=== PATIENT | female | born 1960 | race Caucasian/White ===

== ENCOUNTER 2022-02-05 18:47 | Inpatient (IN) | payer MEDICARE, MEDICAID ==
[~2022-02-05] VITALS: Ht 160 cm; Wt 69.4 kg
[~2022-02-05 18:47] MED LIST: NO HOME MEDS
[2022-02-05 20:44] LABS: BASOPHILS % (AUTO) 0.4 % (0-1); EOSINOPHILS # (AUTO) 0.1 X10'3 (0-0.9); EOSINOPHILS % (AUTO) 2.6 % (0-6); HEMOGLOBIN 7.1 g/dl (12.0-16.0); LYMPHOCYTES # (AUTO) 1.2 X10'3 (1.1-4.8); LYMPHOCYTES % (AUTO) 25.6 % (21-51); MEAN CORPUSCULAR HEMOGLOBIN 33.3 PG (27.0-31.0); MEAN CORPUSCULAR VOLUME 101.1 FL (78-98); MEAN PLATELET VOLUME 7.5 FL (7.4-10.4); MONOCYTES # (AUTO) 0.5 X10'3 (0-0.9); MONOCYTES % (AUTO) 11.3 % (2-12); NEUTROPHILS # (AUTO) 2.8 X10'3 (1.8-7.7); NEUTROPHILS % (AUTO) 60.1 % (42-75); PLATELET COUNT 203 X10'3 (140-440); RED BLOOD COUNT 2.14 X10'6 (4.20-5.60); RED CELL DISTRIBUTION WIDTH 14.8 % (11.5-14.5); WHITE BLOOD COUNT 4.7 X10'3 (4.5-11.0)
[2022-02-05 20:47] LABS: HEMATOCRIT 21.7 % (35.0-45.0)
--- NOTE | 2022-02-05 21:00 | NUR ---
Pt presents to room with alicia (absorbent pad) wrapped around waist and covered in feces. Pt states she was discharged from [facility] [place] like that. Cleaned pt and provided/applied colostomy bag with Otilia PAZ at bedside. Skin area surround stoma is erythematous and tender.
[2022-02-05 21:11] LABS: ALANINE AMINOTRANSFERASE 14 U/L (12-78); ALBUMIN/GLOBULIN RATIO 0.4 (1.1-1.5); ALKALINE PHOSPHATASE 92 IU/L (46-116); ANION GAP 11 (8-16); ASPARTATE AMINO TRANSFERASE 25 U/L (10-37); BILIRUBIN,TOTAL 0.5 MG/DL (0.1-1.0); BLOOD UREA NITROGEN 22 MG/DL (7-18); BUN/CREATININE RATIO 18.6 (6.6-38.0); CALCIUM 7.7 MG/DL (8.5-10.1); CHLORIDE 110 MMOL/L (99-107); CREATININE 1.18 MG/DL (0.40-0.90); GLUCOSE 71 MG/DL (70-104); LIPASE 233 U/L (73-393); SODIUM 142 MMOL/L (135-145); TOTAL CARBON DIOXIDE 21.1 MMOL/L (24-32); TOTAL PROTEIN 7.7 G/DL (6.4-8.2); eGFR 47 ML/MIN
[2022-02-05 21:18] LABS: POTASSIUM 2.9 MMOL/L (3.5-5.1)
[2022-02-05] MEDS ORDERED: normal saline 1000ml 1,000 ML IV ONE (21:45)
[2022-02-05] MEDS ORDERED: ringers solution, lacted 1,000 ML IV ONE (22:10)
[2022-02-05] MEDS ORDERED: magnesium 4gm in 100ml NS 100 ML IV ONE (22:10)
[2022-02-05] MEDS ORDERED: potassium Cl 20 mEq SR tablet PO ONE (22:10)
[2022-02-05 22:36] LABS: CLARITY,URINE CLEAR (Clear); COLOR,URINE YELLOW (Yellow); GLUCOSE, URINE NEGATIVE (Neg); KETONES,URINE NEGATIVE (Neg); LEUKOCYTE ESTERASE ,URINE NEGATIVE (Neg); NITRITES, URINE NEGATIVE (Neg); OCCULT BLOOD,URINE NEGATIVE (Neg); PROTEIN,URINE NEGATIVE (Neg); UROBILINOGEN,URINE 0.2 E.U/dL (0.2-1.0)
[2022-02-05 22:38] LABS: URINE HCG NEGATIVE (NEG)
[2022-02-05 22:45] LABS: UA COLLECTION TYPE VOIDED
[2022-02-05] MEDS: potassium CL 10mEq/100ml bag 100 ML IV SCH ×2 (22:52→23:10)
[2022-02-05] MEDS ORDERED: ondansetron/PF 4mg/2ml inj IV ONE (23:15)
[2022-02-05] MEDS ORDERED: morphine 4 MG/ML inj SYRINge IV ONE (23:15)
[2022-02-05] MEDS ORDERED: piperacillin/tazo 3.375gm/50ml 50 ML IV ONE (23:30)
[2022-02-06] MEDS ORDERED: acetaminophen 325mg tablet PO PRN ×2 (00:55)
[2022-02-06] MEDS ORDERED: ondansetron/PF 4mg/2ml inj IV PRN (00:55)
[2022-02-06] MEDS ORDERED: diphenhydrAMINE 25mg capsule PO PRN (00:55)
[2022-02-06] MEDS ORDERED: magnesium hydroxide 30ml (MOM) UD suspension PO PRN (00:55)
[2022-02-06] MEDS ORDERED: bisacodyl 10mg suppository rectal RC PRN (00:55)
[2022-02-06] MEDS ORDERED: mag hydrox/Alum hydrox/simeth 30ml oral suspension PO PRN (00:55)
[2022-02-06] MEDS ORDERED: potassium Cl 40MEQ/1/2NS 520ml 520 ML IV PRN (00:55)
[2022-02-06] MEDS ORDERED: ondansetron 4mg rapidly disintigrating tab PO PRN (00:55)
[2022-02-06] MEDS ORDERED: acetaminophen 650mg rectal suppository RC PRN (00:55)
[2022-02-06] MEDS ORDERED: diphenhydrAMINE 50 mg/ml inj IV PRN (00:55)
[2022-02-06] MEDS: normal saline 1000ml 1,000 ML IV SCH (01:22)
[2022-02-06] MEDS ORDERED: LACT10SO3 PO (02:17)
[2022-02-06] MEDS ORDERED: HYDR-3964 PO (02:17)
[2022-02-06] MEDS ORDERED: RIFA550T PO (02:17)
[2022-02-06] MEDS ORDERED: FLUD0.1T PO (02:17)
[2022-02-06] MEDS ORDERED: ALBU18HF2 PO (02:17)
[2022-02-06] MEDS ORDERED: DULO30CA52 PO (02:17)
[2022-02-06 02:20] LABS: APTT 27 SECONDS (22-32); D-DIMER 2.73 MG/L FEU (0-0.50)
[2022-02-06 02:29] LABS: CREATINE KINASE 50 U/L (26-192); MAGNESIUM 1.4 MG/DL (1.5-2.4); PHOSPHORUS 3.9 MG/DL (2.3-4.5)
[2022-02-06 02:35] LABS: POTASSIUM 2.7 MMOL/L (3.5-5.1)
[2022-02-06] MEDS: potassium Cl 20 mEq SR tablet PO PRN ×3 (02:44→15:18)
[2022-02-06] MEDS: potassium CL 10mEq/100ml bag 100 ML IV SCH (03:13)
[2022-02-06] MEDS: morphine 2 MG/ML inj. syringe IV PRN ×2 (03:14→17:43)
--- NOTE | 2022-02-06 05:09 | NUR ---
At bedside for first 15 minutes of blood transfusion
[2022-02-06 07:00] VITALS: BP 100/78
[2022-02-06] MEDS: heparin, porcine 5000 units/ml vial SQ SCH ×2 (07:24→20:38)
[2022-02-06] MEDS: docusate sod 100mg capsule PO SCH ×2 (07:25→20:37)
--- NOTE | 2022-02-06 07:52 | NUR ---
Patient in room [facility] 351. I have received report from JACKSON CONTRERAS FROM ER and had the opportunity to ask questions and assume patient care.
[2022-02-06] MEDS ORDERED: pantoprazole 40MG/NS 100ML BAG 100 ML IV SCH (08:00)
[2022-02-06 08:24] LABS: ALBUMIN 1.8 G/DL (3.4-5.0); ANION GAP 11 (8-16); BLOOD UREA NITROGEN 15 MG/DL (7-18); BUN/CREATININE RATIO 14.9 (6.6-38.0); CALCIUM 7.6 MG/DL (8.5-10.1); CHLORIDE 110 MMOL/L (99-107); CREATININE 1.01 MG/DL (0.40-0.90); GLUCOSE 79 MG/DL (70-104); SODIUM 140 MMOL/L (135-145); TOTAL CARBON DIOXIDE 19.2 MMOL/L (24-32); eGFR 56 ML/MIN
[2022-02-06 08:29] LABS: POTASSIUM 2.6 MMOL/L (3.5-5.1)
--- NOTE | 2022-02-06 08:42 | NUR ---
PAGER ID: [phone] MESSAGE: 351- Rickey JOHN- NANCY K 2.6 HAS PROTOCOL REPLACEMENT - [id number]
[2022-02-06] MEDS: HYDROcodone/acetaminophen 5mg/325mg tablet PO PRN ×2 (09:22→15:46)
[2022-02-06 10:27] LABS: BASOPHILS % (AUTO) 0.5 % (0-1); EOSINOPHILS # (AUTO) 0.1 X10'3 (0-0.9); EOSINOPHILS % (AUTO) 2.1 % (0-6); HEMATOCRIT 24.1 % (35.0-45.0); LYMPHOCYTES # (AUTO) 0.7 X10'3 (1.1-4.8); LYMPHOCYTES % (AUTO) 17.5 % (21-51); MEAN CORPUSCULAR HEMOGLOBIN 33.3 PG (27.0-31.0); MEAN CORPUSCULAR HGB CONC 33.2 g/dL (33.0-36.5); MEAN CORPUSCULAR VOLUME 100.2 FL (78-98); MEAN PLATELET VOLUME 8.5 FL (7.4-10.4); MONOCYTES # (AUTO) 0.6 X10'3 (0-0.9); MONOCYTES % (AUTO) 13.3 % (2-12); NEUTROPHILS # (AUTO) 2.8 X10'3 (1.8-7.7); NEUTROPHILS % (AUTO) 66.6 % (42-75); PLATELET COUNT 161 X10'3 (140-440); RED CELL DISTRIBUTION WIDTH 14.6 % (11.5-14.5); WHITE BLOOD COUNT 4.2 X10'3 (4.5-11.0)
[2022-02-06 10:37] VITALS: BP 129/80
[2022-02-06] MEDS: K and/or MAG REPLACEMENT MC SCH ×2 (11:38→20:00)
[2022-02-06] MEDS ORDERED: albuterol 2.5 MG/3 ML nebule NEB PRN (14:40)
[2022-02-06] MEDS ORDERED: pneumococcal 23-VAL P-sac vacc 25 mcg/0.5ml vial IMVAC ONE (15:45)
--- NOTE | 2022-02-06 17:54 | NUR ---
This resource RN was asked by primary RN to administer pain med IV morphine to patient for c/o 8/10 pain. IV site flushed with normal saline flush for patency, morphine administered and flushed again with normal saline flush. Patient then c/o of burning to IV site. Redness to IV site noted. Patient continue to c/o of pain to IV site. Patient's primary RN and credit charge authorizer notified. Primary RN went in to assess IV site and ok with IV Dc. Cool compress to IV site applied after IV dc.
--- NOTE | 2022-02-06 18:42 | NUR ---
Problems reprioritized. Patient report given, questions answered & plan of care reviewed with JACKSON JONES.
[2022-02-06 19:00] VITALS: BP 133/59
[2022-02-06] MEDS ORDERED: lactulose 20gm/30ml cup PO SCH (20:00)
[2022-02-06] MEDS: fludrocortisone acetate 0.1mg tablet PO SCH (20:37)
[2022-02-06] MEDS: rifaximin 550mg tablet PO SCH (20:40)
[2022-02-06] MEDS ORDERED: morphine 2 MG/ML inj. syringe IV ONE (20:55)
[2022-02-06 22:00] VITALS: BP 142/77
[2022-02-07] MEDS: temazepam 15mg capsule PO PRN ×2 (00:51→00:54)
[2022-02-07] MEDS: normal saline 1000ml 1,000 ML IV SCH (00:52)
[2022-02-07 06:00] VITALS: BP 127/57
[2022-02-07 06:07] LABS: BASOPHILS % (AUTO) 0.4 % (0-1); EOSINOPHILS # (AUTO) 0.1 X10'3 (0-0.9); EOSINOPHILS % (AUTO) 2.6 % (0-6); HEMATOCRIT 24.7 % (35.0-45.0); HEMOGLOBIN 8.1 g/dl (12.0-16.0); LYMPHOCYTES # (AUTO) 0.7 X10'3 (1.1-4.8); LYMPHOCYTES % (AUTO) 19.8 % (21-51); MEAN CORPUSCULAR HEMOGLOBIN 32.8 PG (27.0-31.0); MEAN CORPUSCULAR HGB CONC 32.6 g/dL (33.0-36.5); MEAN CORPUSCULAR VOLUME 100.5 FL (78-98); MEAN PLATELET VOLUME 7.4 FL (7.4-10.4); MONOCYTES # (AUTO) 0.4 X10'3 (0-0.9); MONOCYTES % (AUTO) 10.9 % (2-12); NEUTROPHILS # (AUTO) 2.2 X10'3 (1.8-7.7); NEUTROPHILS % (AUTO) 66.3 % (42-75); PLATELET COUNT 178 X10'3 (140-440); RED BLOOD COUNT 2.46 X10'6 (4.20-5.60); RED CELL DISTRIBUTION WIDTH 15.1 % (11.5-14.5); WHITE BLOOD COUNT 3.4 X10'3 (4.5-11.0)
--- NOTE | 2022-02-07 06:07 | NUR ---
Problems reprioritized. Patient report given, questions answered & plan of care reviewed with Ambar. Addendum: 02/07/22 at 0607 by Julio César Tejada RN Amended: Links added.
--- NOTE | 2022-02-07 06:13 | NUR ---
Patient in room [facility] 351. I have received report from JACKSON JONES and had the opportunity to ask questions and assume patient care.
[2022-02-07 06:23] LABS: ALANINE AMINOTRANSFERASE 7 U/L (12-78); ALBUMIN 1.7 G/DL (3.4-5.0); ALBUMIN/GLOBULIN RATIO 0.3 (1.1-1.5); ALKALINE PHOSPHATASE 68 IU/L (46-116); ANION GAP 10 (8-16); ASPARTATE AMINO TRANSFERASE 28 U/L (10-37); BILIRUBIN,TOTAL 0.7 MG/DL (0.1-1.0); BLOOD UREA NITROGEN 12 MG/DL (7-18); CALCIUM 7.8 MG/DL (8.5-10.1); CHLORIDE 114 MMOL/L (99-107); GLUCOSE 97 MG/DL (70-104); POTASSIUM 3.4 MMOL/L (3.5-5.1); SODIUM 142 MMOL/L (135-145); TOTAL PROTEIN 6.7 G/DL (6.4-8.2); eGFR 57 ML/MIN
[2022-02-07] MEDS: HYDROcodone/acetaminophen 5mg/325mg tablet PO PRN (06:53)
[2022-02-07] MEDS ORDERED: pantoprazole 40mg Tablet.DR PO SCH (07:30)
[2022-02-07] MEDS ORDERED: duloxetine 30mg CAPSULE.DR PO SCH (08:00)
[2022-02-07] MEDS: rifaximin 550mg tablet PO SCH (08:25)
[2022-02-07] MEDS: K and/or MAG REPLACEMENT MC SCH (08:25)
[2022-02-07] MEDS: potassium Cl 20 mEq SR tablet PO PRN ×2 (08:25→12:46)
[2022-02-07] MEDS: fludrocortisone acetate 0.1mg tablet PO SCH (08:25)
[2022-02-07] MEDS ORDERED: potassium Cl 20 mEq SR tablet PO PRN ×2 (09:00)
[2022-02-07] MEDS ORDERED: magnesium 4gm in 100ml NS 100 ML IV PRN (09:00)
[2022-02-07] MEDS ORDERED: magnesium Cl slow-release 64mg tablet PO PRN (09:00)
[2022-02-07] MEDS ORDERED: potassium Cl 40MEQ/1/2NS 520ml 520 ML IV PRN (09:00)
[2022-02-07 09:38] LABS: MAGNESIUM 1.4 MG/DL (1.5-2.4)
[2022-02-07] MEDS ORDERED: pneumococcal 23-VAL P-sac vacc 25 mcg/0.5ml vial IMVAC ONE (10:00)
[2022-02-07] MEDS: morphine 2 MG/ML inj. syringe IV PRN (10:42)
[2022-02-07] MEDS: heparin, porcine 5000 units/ml vial SQ SCH (12:20)
[2022-02-07] MEDS: docusate sod 100mg capsule PO SCH (12:20)
[2022-02-07] MEDS ORDERED: MAGN400T56 PO ×2 (13:58)
[2022-02-07] MEDS ORDERED: POTA-207 PO ×2 (13:58)
[2022-02-07] MEDS ORDERED: HYDR-3965 PO ×2 (13:58)
[2022-02-07] MEDS ORDERED: FERR325T28 PO ×2 (13:58)
[2022-02-07] MEDS ORDERED: MULT-1085 PO ×2 (13:58)
[2022-02-07] MEDS ORDERED: VITC500T PO ×2 (13:58)
--- NOTE | 2022-02-07 15:40 | NUR ---
PATIENT STABLE AND APPROPRIATE FOR DISCHARGE, IV REMOVED TELE REMOVED, EDUCATION GIVEN, ALL BELONGINGS SENT WITH PATIENT, PATIENT TAKEN TO LOBBY BY WHEELCHAIR TO AN AWAITING CAR WHERE WILL TAKE PATIENT HOME
[2022-02-07] MEDS ORDERED: K and/or MAG REPLACEMENT MC SCH (20:00)
[2022-02-14] MEDS ORDERED: LACT10SO3 PO (15:27)
[2022-02-14] MEDS ORDERED: MULT-1085 PO (15:29)
[2022-02-14] MEDS ORDERED: FERR325T29 PO (15:29)
[2022-02-14] MEDS ORDERED: POTA-207 PO (15:29)
[2022-02-16] MEDS ORDERED: DOXY-243 PO (16:15)
== END 2022-02-07 15:41 | disposition home or self-care (01) | DRG 641 ==
LOC: ER 18:48 → ED HOLD 02-06 00:58 → SUR 3N 02-06 08:08
PROVIDERS: ADMIT Family Medicine; ATTEND Family Medicine
PROC: 30233N1 Transfusion of Nonautologous Red Blood Cells into Peripheral Vein, Percutaneous Approach (ICD-10-PCS; principal; 2022-02-06)
DX: E87.6 Hypokalemia (principal); E87.20 Acidosis, unspecified; E03.9 Hypothyroidism, unspecified; E83.42 Hypomagnesemia; E83.51 Hypocalcemia; S80.212A Abrasion, left knee, initial encounter; X58.XXXA Exposure to other specified factors, initial encounter; B19.20 Unspecified viral hepatitis C without hepatic coma; E88.09 Other disorders of plasma-protein metabolism, not elsewhere classified; I27.20 Pulmonary hypertension, unspecified; K70.9 Alcoholic liver disease, unspecified; K76.0 Fatty (change of) liver, not elsewhere classified; N18.9 Chronic kidney disease, unspecified; Z87.891 Personal history of nicotine dependence; Z90.49 Acquired absence of other specified parts of digestive tract; Z93.3 Colostomy status; Y93.89 Activity, other specified; Y92.89 Other specified places as the place of occurrence of the external cause; Y99.8 Other external cause status; Z79.899 Other long term (current) drug therapy; D64.89 Other specified anemias
CPT/HCPCS: 36415; 36430; 71045; 74176; 80048; 80053; 81003; 81025; 82550; 83605; 83690; 83735; 83880; 84100; 84132; 84145; 84443; 84484; 85025; 85379; 85610; 85730; 86885; 86900; 86901; 86920; 87040; 87081; 90732; 99285; A4371; A4421; A6212; A6213; C9113; G0378; J1644; J2270; J2543; J3475; J3480; J7030; J7050; J7120; P9016

== ENCOUNTER 2022-04-01 06:28 | Inpatient (IN) | payer MEDICARE, MEDICAID ==
[~2022-04-01] VITALS: Ht 160 cm; Wt 68.2 kg
[~2022-04-01 06:28] MED LIST changes: +AMOX-580 PO; +DULO60CA60 PO; +FERR325T29 PO; +FLUD0.1T PO; +HYDR-3964 PO; +LACT10SO3 PO; +MULT-1085 PO; -NO HOME MEDS; +POTA-207 PO; +RIFA550T PO
[2022-04-01] MEDS: morphine 4 MG/ML inj SYRINge IV PRN ×2 (07:53→11:55)
[2022-04-01 08:27] LABS: BASOPHILS % (AUTO) 0.3 % (0-1); EOSINOPHILS # (AUTO) 0.1 X10'3 (0-0.9); EOSINOPHILS % (AUTO) 1.5 % (0-6); HEMOGLOBIN 7.4 g/dl (12.0-16.0); MEAN CORPUSCULAR HEMOGLOBIN 32.5 PG (27.0-31.0); MEAN CORPUSCULAR HGB CONC 34.1 g/dL (33.0-36.5); MEAN CORPUSCULAR VOLUME 95.3 FL (78-98); MEAN PLATELET VOLUME 8.4 FL (7.4-10.4); MONOCYTES # (AUTO) 0.5 X10'3 (0-0.9); MONOCYTES % (AUTO) 8.9 % (2-12); NEUTROPHILS % (AUTO) 71.3 % (42-75); PLATELET COUNT 202 X10'3 (140-440); RED BLOOD COUNT 2.27 X10'6 (4.20-5.60); RED CELL DISTRIBUTION WIDTH 16.3 % (11.5-14.5); WHITE BLOOD COUNT 5.6 X10'3 (4.5-11.0)
[2022-04-01 08:33] LABS: ALANINE AMINOTRANSFERASE 11 U/L (12-78); ALBUMIN 1.6 G/DL (3.4-5.0); ALBUMIN/GLOBULIN RATIO 0.3 (1.1-1.5); ALKALINE PHOSPHATASE 136 IU/L (46-116); ANION GAP 6 (8-16); ASPARTATE AMINO TRANSFERASE 32 U/L (10-37); BILIRUBIN,TOTAL 0.4 MG/DL (0.1-1.0); BLOOD UREA NITROGEN 11 MG/DL (7-18); BUN/CREATININE RATIO 14.3 (6.6-38.0); CALCIUM 7.5 MG/DL (8.5-10.1); CHLORIDE 110 MMOL/L (99-107); CREATININE 0.77 MG/DL (0.40-0.90); GLUCOSE 95 MG/DL (70-104); LIPASE 106 U/L (73-393); SODIUM 142 MMOL/L (135-145); TOTAL CARBON DIOXIDE 25.9 MMOL/L (24-32); TOTAL PROTEIN 7.2 G/DL (6.4-8.2); eGFR 76 ML/MIN
[2022-04-01 08:36] LABS: HEMATOCRIT 21.7 % (35.0-45.0)
[2022-04-01 08:45] LABS: POTASSIUM 2.5 MMOL/L (3.5-5.1)
[2022-04-01 09:10] LABS: CLARITY,URINE SLIGHTLY CLOUDY (Clear); COLOR,URINE YELLOW (Yellow); GLUCOSE, URINE NEGATIVE (Neg); KETONES,URINE NEGATIVE (Neg); LEUKOCYTE ESTERASE ,URINE NEGATIVE (Neg); NITRITES, URINE NEGATIVE (Neg); OCCULT BLOOD,URINE NEGATIVE (Neg); PH,URINE 7.5 (4.8-8.0); PROTEIN,URINE NEGATIVE (Neg); UROBILINOGEN,URINE 0.2 E.U/dL (0.2-1.0)
[2022-04-01] MEDS ORDERED: ceFAZolin/D5W- 1GM premix 50 ML IV STA (09:11)
[2022-04-01 09:12] LABS: UA COLLECTION TYPE CLN CATCH MIDSTREAM
--- NOTE | 2022-04-01 09:14 | NUR ---
Pt presented with colostomy stoma (red, intact) with ulcer adjacent to it. Additionally, dried stool noted around stoma. RN pre-medicated pt with IV morphine. Then RN cleansed and dried abdomen, applying nonadherent dressing to stoma and ulcer per Dr. Ricks. Pt tolerated dressing change with some discomfort. Pt resting comfortably now without complaints.
--- NOTE | 2022-04-01 09:16 | NUR ---
RN received lab results: Hct 21.7, Hgb 7.4, and K+ 2.4. RN notified Dr. Ricks at 0906. Will await orders.
[2022-04-01 09:17] LABS: BACTERIA,URINE NONE SEEN /HPF (Neg); RBC,URINE 0-2 /HPF (0-2); SQUAMOUS EPITHELIAL CELL,UR FEW /LPF (FEW); WBC,URINE 0-4 /HPF (0-4)
[2022-04-01] MEDS ORDERED: potassium Cl 20 mEq SR tablet PO PRN ×4 (09:55→10:55)
[2022-04-01] MEDS ORDERED: potassium Cl 40MEQ/1/2NS 520ml 520 ML IV PRN ×3 (09:55→10:55)
[2022-04-01] MEDS ORDERED: K, MAG and/or Phos replacement - Verify level? MC SCH (10:00)
--- NOTE | 2022-04-01 10:00 | NUR ---
Per , OK to order K+ replacement protocol and replace. RN ordered via [facility].
[2022-04-01] MEDS ORDERED: potassium Cl 40MEQ/1/2NS 520ml 520 ML IV ONE ×2 (10:05→23:25)
[2022-04-01] MEDS ORDERED: magnesium Cl slow-release 64mg tablet PO PRN (10:55)
[2022-04-01] MEDS ORDERED: ondansetron/PF 4mg/2ml inj IV PRN (10:55)
[2022-04-01] MEDS ORDERED: magnesium 4gm in 100ml NS 100 ML IV PRN (10:55)
[2022-04-01] MEDS ORDERED: magnesium 2GM in 50ml NS 50 ML IV PRN (10:55)
[2022-04-01] MEDS ORDERED: ondansetron 4mg rapidly disintigrating tab PO PRN (10:55)
[2022-04-01] MEDS ORDERED: acetaminophen 650mg rectal suppository RC PRN (10:55)
--- NOTE | 2022-04-01 11:26 | NUR ---
[employer]) is available by phone [phone].
[2022-04-01] MEDS: normal saline 1000ml 1,000 ML IV SCH ×2 (11:54→21:51)
[2022-04-01 11:59] LABS: MAGNESIUM 1.5 MG/DL (1.5-2.4)
--- NOTE | 2022-04-01 14:21 | NUR ---
RN called to give report to surgical unit at 1420. Receiving RN unable to receive report at this time and will call back shortly.
[2022-04-01] MEDS ORDERED: DULO60CA65 PO (14:37)
--- NOTE | 2022-04-01 14:37 | NUR ---
RN paged Dr. June @ [phone] "ER-2, Farmer - Pt writhing around in pain, appears to be more distressed than this AM, stating "it's getting worse." I will administer 1 mg IV morphine and monitor."
[2022-04-01] MEDS ORDERED: MELA1TAB28 PO (14:38)
[2022-04-01] MEDS ORDERED: MELA3TAB70 PO (14:38)
[2022-04-01] MEDS ORDERED: ASCO100T12 PO (14:38)
[2022-04-01] MEDS ORDERED: MELA3TAB39 PO (14:39)
[2022-04-01] MEDS ORDERED: CHOL400T8 PO (14:40)
[2022-04-01] MEDS: morphine 2 MG/ML inj. syringe IV PRN ×2 (14:42→18:55)
--- NOTE | 2022-04-01 15:02 | NUR ---
RN gave nurse report to JACKSON Razo at 1502. Pt stable. VS WNL. Abdominal dressing intact. Will transfer to [facility] shortly.
[2022-04-01] MEDS: potassium Cl 40MEQ/1/2NS 520ml 520 ML IV ONE ×2 (15:29→16:37)
--- NOTE | 2022-04-01 15:30 | NUR ---
Pt transferred to 346 A.
[2022-04-01 16:00] VITALS: BP 131/66
[2022-04-01 18:00] VITALS: BP 137/68
--- NOTE | 2022-04-01 18:13 | NUR ---
Problems reprioritized. Patient report given, questions answered & plan of care reviewed with JACKSON Bateman.
[2022-04-01] MEDS: K and/or MAG REPLACEMENT MC SCH (19:55)
[2022-04-01 22:00] VITALS: BP 130/53
[2022-04-02] MEDS: morphine 2 MG/ML inj. syringe IV PRN ×4 (00:08→20:46)
[2022-04-02 06:00] VITALS: BP 147/42
--- NOTE | 2022-04-02 06:27 | NUR ---
Problems reprioritized. Patient report given, questions answered & plan of care reviewed with JACKSON Chambers.
[2022-04-02 06:46] LABS: BASOPHILS % (AUTO) 0.7 % (0-1); EOSINOPHILS # (AUTO) 0.1 X10'3 (0-0.9); EOSINOPHILS % (AUTO) 2.2 % (0-6); HEMATOCRIT 22.7 % (35.0-45.0); HEMOGLOBIN 7.7 g/dl (12.0-16.0); LYMPHOCYTES # (AUTO) 0.9 X10'3 (1.1-4.8); LYMPHOCYTES % (AUTO) 21.4 % (21-51); MEAN CORPUSCULAR HEMOGLOBIN 32.8 PG (27.0-31.0); MEAN CORPUSCULAR HGB CONC 33.7 g/dL (33.0-36.5); MEAN CORPUSCULAR VOLUME 97.5 FL (78-98); MEAN PLATELET VOLUME 8.5 FL (7.4-10.4); MONOCYTES # (AUTO) 0.4 X10'3 (0-0.9); MONOCYTES % (AUTO) 9.4 % (2-12); NEUTROPHILS # (AUTO) 2.9 X10'3 (1.8-7.7); NEUTROPHILS % (AUTO) 66.3 % (42-75); PLATELET COUNT 185 X10'3 (140-440); RED BLOOD COUNT 2.33 X10'6 (4.20-5.60); RED CELL DISTRIBUTION WIDTH 16.2 % (11.5-14.5); WHITE BLOOD COUNT 4.4 X10'3 (4.5-11.0)
--- NOTE | 2022-04-02 06:48 | NUR ---
Patient in room [facility] 346. I have received report from Bhavana Collins and had the opportunity to ask questions and assume patient care.
[2022-04-02 07:09] LABS: ALBUMIN 1.6 G/DL (3.4-5.0); ANION GAP 8 (8-16); BLOOD UREA NITROGEN 8 MG/DL (7-18); BUN/CREATININE RATIO 11.4 (6.6-38.0); CALCIUM 7.4 MG/DL (8.5-10.1); CHLORIDE 111 MMOL/L (99-107); GLUCOSE 62 MG/DL (70-104); MAGNESIUM 1.3 MG/DL (1.5-2.4); POTASSIUM 3.5 MMOL/L (3.5-5.1); SODIUM 142 MMOL/L (135-145); TOTAL CARBON DIOXIDE 23.5 MMOL/L (24-32); eGFR 85 ML/MIN
[2022-04-02] MEDS: K and/or MAG REPLACEMENT MC SCH ×2 (08:00→16:14)
[2022-04-02] MEDS: normal saline 1000ml 1,000 ML IV SCH ×2 (08:41→16:15)
--- NOTE | 2022-04-02 10:58 | NUR ---
Patient in room [facility] 346. I have received report from Trish PAZ and had the opportunity to ask questions and assume patient care.
[2022-04-02 11:12] VITALS: BP 136/62
[2022-04-02] MEDS: vancomycin/NS 1 GM ADD-VANTAGE 250 ML IV SCH (14:33)
[2022-04-02] MEDS: magnesium Cl slow-release 64mg tablet PO PRN (16:15)
[2022-04-02 18:00] VITALS: BP 133/61
--- NOTE | 2022-04-02 18:21 | NUR ---
Problems reprioritized. Patient report given, questions answered & plan of care reviewed with Julia PAZ ICU Nurse.
[2022-04-02 22:00] VITALS: BP 142/71
[2022-04-03] MEDS: morphine 2 MG/ML inj. syringe IV PRN ×3 (01:03→23:05)
[2022-04-03] MEDS: vancomycin/NS 1 GM ADD-VANTAGE 250 ML IV SCH ×2 (01:06→13:08)
[2022-04-03] MEDS ORDERED: albuterol 2.5 MG/3 ML nebule NEB PRN (01:50)
[2022-04-03 06:53] VITALS: BP 134/56
--- NOTE | 2022-04-03 06:54 | NUR ---
Patient in room [facility] 346. I have received report from Julia PAZ and had the opportunity to ask questions and assume patient care.
[2022-04-03 07:08] LABS: BASOPHILS % (AUTO) 0.6 % (0-1); EOSINOPHILS # (AUTO) 0.1 X10'3 (0-0.9); EOSINOPHILS % (AUTO) 2.7 % (0-6); HEMATOCRIT 23.7 % (35.0-45.0); LYMPHOCYTES # (AUTO) 0.9 X10'3 (1.1-4.8); MEAN CORPUSCULAR HEMOGLOBIN 32.5 PG (27.0-31.0); MEAN CORPUSCULAR HGB CONC 33.5 g/dL (33.0-36.5); MEAN PLATELET VOLUME 8.9 FL (7.4-10.4); MONOCYTES # (AUTO) 0.4 X10'3 (0-0.9); NEUTROPHILS # (AUTO) 2.9 X10'3 (1.8-7.7); NEUTROPHILS % (AUTO) 66.7 % (42-75); PLATELET COUNT 204 X10'3 (140-440); RED BLOOD COUNT 2.45 X10'6 (4.20-5.60); RED CELL DISTRIBUTION WIDTH 15.7 % (11.5-14.5); WHITE BLOOD COUNT 4.3 X10'3 (4.5-11.0)
[2022-04-03 07:22] LABS: ALBUMIN 1.6 G/DL (3.4-5.0); ANION GAP 6 (8-16); BLOOD UREA NITROGEN 7 MG/DL (7-18); BUN/CREATININE RATIO 9.2 (6.6-38.0); CALCIUM 7.8 MG/DL (8.5-10.1); CHLORIDE 110 MMOL/L (99-107); CREATININE 0.76 MG/DL (0.40-0.90); GLUCOSE 87 MG/DL (70-104); MAGNESIUM 1.4 MG/DL (1.5-2.4); POTASSIUM 3.5 MMOL/L (3.5-5.1); SODIUM 140 MMOL/L (135-145); eGFR 78 ML/MIN
[2022-04-03] MEDS: K and/or MAG REPLACEMENT MC SCH ×2 (07:27→20:00)
[2022-04-03] MEDS: normal saline 1000ml 1,000 ML IV SCH (09:12)
[2022-04-03 11:15] VITALS: BP 129/63
--- NOTE | 2022-04-03 18:17 | NUR ---
Problems reprioritized. Patient report given, questions answered & plan of care reviewed with Leonie PAZ.
[2022-04-03] MEDS: magnesium Cl slow-release 64mg tablet PO PRN (21:00)
[2022-04-03 22:00] VITALS: BP 160/84
[2022-04-04] MEDS ORDERED: VANCOMYCIN LEVEL IV ONE (00:30)
[2022-04-04] MEDS: vancomycin/NS 1 GM ADD-VANTAGE 250 ML IV SCH (01:08)
[2022-04-04 01:24] LABS: BASOPHILS % (AUTO) 0.4 % (0-1); EOSINOPHILS # (AUTO) 0.1 X10'3 (0-0.9); HEMATOCRIT 22.3 % (35.0-45.0); HEMOGLOBIN 7.6 g/dl (12.0-16.0); LYMPHOCYTES # (AUTO) 0.8 X10'3 (1.1-4.8); LYMPHOCYTES % (AUTO) 20.8 % (21-51); MEAN CORPUSCULAR HEMOGLOBIN 32.4 PG (27.0-31.0); MEAN CORPUSCULAR HGB CONC 33.9 g/dL (33.0-36.5); MEAN CORPUSCULAR VOLUME 95.7 FL (78-98); MONOCYTES # (AUTO) 0.4 X10'3 (0-0.9); MONOCYTES % (AUTO) 10.9 % (2-12); NEUTROPHILS # (AUTO) 2.7 X10'3 (1.8-7.7); NEUTROPHILS % (AUTO) 65.9 % (42-75); PLATELET COUNT 175 X10'3 (140-440); RED BLOOD COUNT 2.33 X10'6 (4.20-5.60); RED CELL DISTRIBUTION WIDTH 15.6 % (11.5-14.5)
[2022-04-04 01:31] LABS: ALBUMIN 1.4 G/DL (3.4-5.0); ANION GAP 4 (8-16); BLOOD UREA NITROGEN 4 MG/DL (7-18); BUN/CREATININE RATIO 6.3 (6.6-38.0); CALCIUM 7.9 MG/DL (8.5-10.1); CHLORIDE 110 MMOL/L (99-107); CREATININE 0.63 MG/DL (0.40-0.90); GLUCOSE 89 MG/DL (70-104); MAGNESIUM 1.3 MG/DL (1.5-2.4); POTASSIUM 3.4 MMOL/L (3.5-5.1); SODIUM 138 MMOL/L (135-145); eGFR > 90 ML/MIN
[2022-04-04 06:29] VITALS: BP 160/88
--- NOTE | 2022-04-04 06:29 | NUR ---
Patient in room [facility] 346. I have received report from Leonie PAZ and had the opportunity to ask questions and assume patient care.
[2022-04-04] MEDS: K and/or MAG REPLACEMENT MC SCH ×2 (06:44→19:50)
[2022-04-04] MEDS: magnesium Cl slow-release 64mg tablet PO PRN (07:12)
[2022-04-04 11:02] VITALS: BP 153/71
[2022-04-04] MEDS: morphine 2 MG/ML inj. syringe IV PRN ×3 (11:54→22:05)
[2022-04-04] MEDS ORDERED: potassium Cl 20 mEq SR tablet PO PRN (12:35)
[2022-04-04] MEDS ORDERED: magnesium 4gm in 100ml NS 100 ML IV PRN (12:35)
[2022-04-04] MEDS ORDERED: potassium Cl 40MEQ/1/2NS 520ml 520 ML IV PRN (12:35)
[2022-04-04] MEDS ORDERED: magnesium Cl slow-release 64mg tablet PO PRN (12:35)
[2022-04-04] MEDS: potassium Cl 20 mEq SR tablet PO PRN ×2 (12:41→20:17)
[2022-04-04] MEDS: VANCOmycin 1250MG/NS 250ml Bag 250 ML IV SCH (12:42)
[2022-04-04] MEDS: normal saline 1000ml 1,000 ML IV SCH (12:46)
--- NOTE | 2022-04-04 14:31 | NUR ---
OSTOMY FACTS: Almost everyone has know of, or met, businessmen, entertainers, athletes, and people from all walks of life who have an ostomy. Ostomates (a person that has an ostomy) can ski, ride horses, bowl, and get healthy exercise in countless ways. Your usual activities of daily living can be resumed as soon as you are able. Gradually you will be able to wear the clothes worn before surgery. With modern pouches, nothing is noticeable under your clothing. It may be difficult at first to believe that an intimate relationship can be possible when one's body has been disfigured by surgery. This is not true. Love, fortunately, is not easily destroyed when it is based on genuine appreciation of a person as a thinking, feeling, reacting human being. AN OSTOMY IS NOT AN IMPAIRMENT!! DEFINITIONS: 1.OSTOMY: An opening that is created by a surgical procedure. The opening is called a "stoma". 2.STOMA: A surgical opening in the abdomen (belly) where intestine is brought through the abdominal wall and connected at the skin level. A stoma is shiny, wet and at first is dark purple but eventually turns pink, similar to the inside lining of your mouth. 3.COLON: A portion of the large bowel. 4.COLOSTOMY: A fecal diversion with an opening, (stoma) created anywhere along the colon. Making a connection between the colon and the abdominal wall. 5.ILLEOSTOMY: A fecal diversion with an opening, (stoma) created in the small intestine. Making a connection between the small intestine and the abdominal wall. 6.UROSTOMY: A urinary diversion with the ureters connected to a segment of the small bowel and one end is brought out and connected to the abdominal wall, creating a stoma. SHAPES and SIZES: "The stoma is usually round or oval. "It is anywhere from a dime to half dollar in size. "A stoma reaches its permanent size 6-8 weeks after surgery. PRODUCTS: 1.POUCH or APPLIANCE: An external device to contain stool or urine output and protect the skin around the stoma. It can be a one piece pouch or two pieces (a pouch and a wafer). 2.BARRIER: Substance that is used to protect the skin around the stoma from drainage and adhesive. 3.SKIN PREP or SEALANT: Product applied to the skin to reduce injury from moisture, drainage, or repeated pouch removal. Available in spray or wipes. 4.CLOSURE or CLAMP: A device used to close the bottom of a drainable pouch. 5.BRIDGE or YAMILETH: A piece of plastic placed under a loop of bowel on the skins surface, to secure the bowel in place while the skin heals. POUCH CHANGE PROCEEDURE: 1.Assemble all the supplies "1 or 2 piece appliance "Ostomy paste (if needed) "Ostomy powder (if needed) "Skin prep wipes ( not recommended with coloplast products) "Moist wash cloth or cotton balls 2.Remove plastic center and paper backing from pouch. If pouch or wafer is not precut, use the sizing guide, or plastic backing from pouch to make a pattern. Do this by placing the paper over the stoma and trace it, or draw a pattern. Cut the wafer to fit and set it aside. 3.Remove old pouch by lifting up on tape while pressing skin down away from the tape. If there is a clip on your pouch, remove it and save it. 4.Clean skin or stoma with moistened wash cloth or cotton balls. Place a clean cotton ball over stoma hole to catch any drainage. Let skin dry. 5.For grooves or uneven areas in the skin- apply ostomy paste and sprinkle with ostomy powder, then gently shape the past so the area around the stoma is smooth and as flat as possible. Wipe off or blow away excess. Blot powder with skin prep wipe (DO NOT wipe powder). Let dry until no longer sticky. 6.For irritated or reddened skin- sprinkle ostomy powder on red or irritated area. Wipe off or blow away excess. Blot powder with skin prep wipe (DO NOT wipe powder). Let dry until no longer sticky. 7.Apply skin prep wipe to skin to which the pouch and tape will adhere. Let dry until no longer sticky. 8.If you have a one piece appliance- apply pouch so it is centered around the stoma. No skin should be exposed to stool. All skin should be covered by paste or pouch. 9.If you have a two piece appliance- Apply the wafer as described above, then snap or stick pouch onto wafer. Check to make sure wafer and pouch are securely connected. 10.Place clip on bottom of pouch. 11.Empty pouch when 1/3 full. OSTOMY SKIN CARE: "Good health care and nutrition are essential for healthy skin. "Usually a correct pouch size will prevent skin breakdown. "Use warm water and soap for skin cleansing. "Do not use creams or oil based products on skin around the stoma. This will prevent the appliance from sticking. "Use skin prep around the stoma. IT CAN TAKE 24 HOURS TO SEVERAL DAYS FOR SKIN TO HEAL. IF IT IS NOT RESOLVING, OR GETTING WORSE, CALL YOUR PRIMARY CARE DOCTOR. Addendum: 04/04/22 at 1431 by Tere Grijalva LVN Amended: Links added.
[2022-04-04 18:00] VITALS: BP 169/84
--- NOTE | 2022-04-04 18:20 | NUR ---
Problems reprioritized. Patient report given, questions answered & plan of care reviewed with Leonie PAZ.
[2022-04-04 22:00] VITALS: BP 165/88
[2022-04-05] MEDS: VANCOmycin 1250MG/NS 250ml Bag 250 ML IV SCH ×2 (00:36→13:19)
[2022-04-05 05:00] VITALS: BP 138/80
[2022-04-05 06:19] LABS: BASOPHILS % (AUTO) 0.7 % (0-1); EOSINOPHILS # (AUTO) 0.1 X10'3 (0-0.9); EOSINOPHILS % (AUTO) 1.8 % (0-6); HEMATOCRIT 23.8 % (35.0-45.0); LYMPHOCYTES # (AUTO) 0.9 X10'3 (1.1-4.8); MEAN CORPUSCULAR HEMOGLOBIN 32.3 PG (27.0-31.0); MEAN CORPUSCULAR HGB CONC 33.6 g/dL (33.0-36.5); MEAN CORPUSCULAR VOLUME 96.2 FL (78-98); MEAN PLATELET VOLUME 8.5 FL (7.4-10.4); MONOCYTES # (AUTO) 0.6 X10'3 (0-0.9); MONOCYTES % (AUTO) 12.8 % (2-12); NEUTROPHILS % (AUTO) 64.7 % (42-75); PLATELET COUNT 169 X10'3 (140-440); RED BLOOD COUNT 2.47 X10'6 (4.20-5.60); RED CELL DISTRIBUTION WIDTH 14.9 % (11.5-14.5); WHITE BLOOD COUNT 4.7 X10'3 (4.5-11.0)
[2022-04-05 06:22] LABS: ALBUMIN 1.5 G/DL (3.4-5.0); ANION GAP 3 (8-16); BLOOD UREA NITROGEN 5 MG/DL (7-18); BUN/CREATININE RATIO 8.1 (6.6-38.0); CHLORIDE 109 MMOL/L (99-107); CREATININE 0.62 MG/DL (0.40-0.90); GLUCOSE 81 MG/DL (70-104); MAGNESIUM 1.4 MG/DL (1.5-2.4); POTASSIUM 3.8 MMOL/L (3.5-5.1); SODIUM 137 MMOL/L (135-145); TOTAL CARBON DIOXIDE 24.8 MMOL/L (24-32); eGFR > 90 ML/MIN
[2022-04-05] MEDS: K and/or MAG REPLACEMENT MC SCH ×2 (08:42→20:00)
[2022-04-05] MEDS ORDERED: DOXY100C2 PO (10:25)
[2022-04-05 11:00] VITALS: BP 169/86
[2022-04-05] MEDS: morphine 2 MG/ML inj. syringe IV PRN ×2 (13:19→19:17)
--- NOTE | 2022-04-05 14:32 | NUR ---
MR. Farmer called to talk with patient. I notified him she is discharged and she could be picked up. He then stated "I thought she was going into surgery." I informed him no, so he said "I will call you back and let you know when I can pick her up" Addendum: 04/05/22 at 1616 by Alycia Zapata RN FIRST NUMBER GOES TO VOICE MAIL, Sabas S.O.[phone] SECOND NUMBER NOT WORKING cell [phone] (work shift commander) Numbers are not working, Sabas has not called back. Awaiting call for Pick-up will notify Dr. GONZALEZ
--- NOTE | 2022-04-05 16:21 | NUR ---
PAGER ID: [phone] MESSAGE: [phone] BEULAH JOHN Patient S/O is aware she is being discharged, but hasn't returned my call when he is picking her up. Alycia [id number] Addendum: 04/05/22 at 1646 by Alycia Zapata RN No reponse yet from Sabas or Dr. June.
--- NOTE | 2022-04-05 17:22 | NUR ---
Dr. June called back and stated "it wasn't her problem after the patient has been discharged, that I should call Case Management" I called her to have her beaware of what was going on with the patient and her discharge. I will not do notify her again, due to her stating she will let management know in the am that it is nursings fault, I should have called case management.
--- NOTE | 2022-04-05 18:08 | NUR ---
Sabas called and will bean picker Jenny at 2100, supplies to be given on discharge.
--- NOTE | 2022-04-05 18:56 | NUR ---
Problems reprioritized. Patient report given, questions answered & plan of care reviewed with night rn.
--- NOTE | 2022-04-05 21:55 | NUR ---
With the assistance of the charge nurse RN patient was gotten ready for discharge. PIV was discontinued with tip intact. Pt provided with scrub bottoms to get dressed. All belongings were packed up including an extra colostomy appliance. Pt verbalized that she had all of her belongings. Discharge instructions were gone over with patient including making her follow up appointments, new prescriptions to pickle pumper tomorrow, her care and if any symptoms get worse to return to the ER. Patient verbalized understanding and declined having any questions at this time. Patient was transferred into a wheelchair and escorted out to her boyfriend awaiting with their private vehicle. Pt made it safe into the care without incident with all of her belongings.
[2022-04-06] MEDS ORDERED: VANCOMYCIN LEVEL IV ONE (00:30)
== END 2022-04-05 21:50 | disposition home or self-care (01) | DRG 394 ==
LOC: ER 06:29 → ED HOLD 11:01 → SUR 3N 15:15
PROVIDERS: ADMIT Internal Medicine; ATTEND Internal Medicine
DX: K94.00 Colostomy complication, unspecified (principal); E46 Unspecified protein-calorie malnutrition; L03.311 Cellulitis of abdominal wall; R18.8 Other ascites; K43.9 Ventral hernia without obstruction or gangrene; B18.2 Chronic viral hepatitis C; D63.8 Anemia in other chronic diseases classified elsewhere; E03.9 Hypothyroidism, unspecified; E65 Localized adiposity; E87.6 Hypokalemia; I11.0 Hypertensive heart disease with heart failure; I50.9 Heart failure, unspecified; J45.909 Unspecified asthma, uncomplicated; K74.60 Unspecified cirrhosis of liver; L98.499 Non-pressure chronic ulcer of skin of other sites with unspecified severity; Z79.899 Other long term (current) drug therapy; Z68.26 Body mass index [BMI] 26.0-26.9, adult
CPT/HCPCS: 36415; 74176; 80048; 80053; 80202; 81001; 82140; 83605; 83690; 83735; 84132; 84145; 85025; 87040; 87081; 94640; 94760; 96365; 96366; 96368; 99285; A4421; A6212; A6213; A6223; A6253; A6258; A6449; G0378; J0690; J2270; J3370; J3480; J3490; J7030

== ENCOUNTER → 2022-07-25 | Outpatient (CLI) | payer MEDICARE, MEDICAID ==
[~2022-07-25] VITALS: Ht 160 cm; Wt 63.5 kg
[~2022-07-25] MED LIST changes: -AMOX-580 PO; +ASCO100T12 PO; +CHOL400T8 PO; -DULO60CA60 PO; +DULO60CA65 PO; -FLUD0.1T PO; -HYDR-3964 PO; -LACT10SO3 PO; +MELA3TAB39 PO; -POTA-207 PO; -RIFA550T PO; +clindamycin-Cleocin 900mg/D5W 50 ML IV ONE; +famotidine 20mg tablet PO ONE; +gentamicin inj 280 MG in normal saline 100ml IV soln 93 ML IV ONE; +ringers solution, lacted 1,000 ML IV SCH
[2022-07-25 16:43] LABS: BASOPHILS % (AUTO) 0.4 % (0-1); EOSINOPHILS # (AUTO) 0.1 X10'3 (0-0.9); EOSINOPHILS % (AUTO) 2.7 % (0-6); LYMPHOCYTES # (AUTO) 0.7 X10'3 (1.1-4.8); MEAN CORPUSCULAR HGB CONC 33.5 g/dL (33.0-36.5); MEAN CORPUSCULAR VOLUME 89.6 FL (78-98); MEAN PLATELET VOLUME 8.9 FL (7.4-10.4); MONOCYTES # (AUTO) 0.6 X10'3 (0-0.9); NEUTROPHILS # (AUTO) 3.7 X10'3 (1.8-7.7); NEUTROPHILS % (AUTO) 70.9 % (42-75); PRE OP HEMATOCRIT 31.8 % (35.0-45.0); PRE OP PLATELET COUNT 174 X10'3 (140-440); RED BLOOD COUNT 3.55 X10'6 (4.20-5.60)
[2022-07-25 16:51] LABS: PRE OP PROTIME 10.9 SECONDS (9.0-12.0)
[2022-07-25 16:53] LABS: ALBUMIN 3.4 G/DL (3.4-5.0); ALBUMIN/GLOBULIN RATIO 0.6 (1.1-1.5); ALKALINE PHOSPHATASE 157 IU/L (46-116); BLOOD UREA NITROGEN 18 MG/DL (7-18); BUN/CREATININE RATIO 20.7 (10.0-20.0); CHLORIDE 107 MMOL/L (99-107); CREATININE 0.87 MG/DL (0.40-0.90); PRE OP ALT 23 U/L (30-65); PRE OP ANION GAP 11 (8-16); PRE OP AST 27 U/L (10-37); PRE OP BILIRUB, TOTAL 0.3 MG/DL (0.0-1.0); PRE OP GLUCOSE 65 MG/DL (70-104); PRE OP POTASSIUM 3.6 MMOL/L (3.4-5.1); PRE OP SODIUM 142 MMOL/L (135-145); TOTAL CARBON DIOXIDE 24.2 MMOL/L (24-32); TOTAL PROTEIN 8.7 G/DL (6.4-8.2); eGFR 66 ML/MIN
[2022-07-25 16:54] LABS: PRE OP HEMOGLOBIN 10.6 g/dL (12.0-16.0)
== END | disposition home or self-care (01) ==
LOC: LAB 16:35 → EDSTATUS 08-02 12:30
PROVIDERS: ATTEND Surgery
DX: Z01.818 Encounter for other preprocedural examination (principal); K55.039 Acute (reversible) ischemia of large intestine, extent unspecified; Z93.3 Colostomy status
CPT/HCPCS: 36415; 71046; 80053; 85025; 85610; 85730; 86885; 86900; 86901; 87081; 93005; J1580; J3490; J7120

== ENCOUNTER 2022-08-26 10:20 | Outpatient (CLI) | payer MEDICARE, MEDICAID ==
[~2022-08-26] VITALS: Ht 160 cm; Wt 68.0 kg
[~2022-08-26 10:20] MED LIST changes: -MELA3TAB39 PO; -clindamycin-Cleocin 900mg/D5W 50 ML IV ONE; -famotidine 20mg tablet PO ONE; -gentamicin inj 280 MG in normal saline 100ml IV soln 93 ML IV ONE; -ringers solution, lacted 1,000 ML IV SCH
[2022-08-26] MEDS ORDERED: POTASSIUM (10:57)
[2022-08-26 12:06] LABS: BASOPHILS # (AUTO) 0.1 X10'3 (0-0.2); EOSINOPHILS # (AUTO) 0.2 X10'3 (0-0.9); EOSINOPHILS % (AUTO) 4.3 % (0-6); LYMPHOCYTES % (AUTO) 19.4 % (21-51); MEAN CORPUSCULAR HEMOGLOBIN 29.8 PG (27.0-31.0); MEAN CORPUSCULAR VOLUME 87.7 FL (78-98); MEAN PLATELET VOLUME 8.5 FL (7.4-10.4); MONOCYTES # (AUTO) 0.7 X10'3 (0-0.9); MONOCYTES % (AUTO) 12.7 % (2-12); NEUTROPHILS # (AUTO) 3.2 X10'3 (1.8-7.7); NEUTROPHILS % (AUTO) 62.6 % (42-75); PRE OP HEMATOCRIT 33.4 % (35.0-45.0); PRE OP HEMOGLOBIN 11.4 g/dL (12.0-16.0); PRE OP PLATELET COUNT 210 X10'3 (140-440); PRE OP WHITE BLOOD COUNT 5.1 10'3 (4.8-10.8); RED BLOOD COUNT 3.81 X10'6 (4.20-5.60); RED CELL DISTRIBUTION WIDTH 15.1 % (11.5-14.5)
[2022-08-26 12:15] LABS: BILIRUBIN,URINE NEGATIVE (Neg); CLARITY,URINE CLEAR (Clear); COLOR,URINE YELLOW (Yellow); GLUCOSE, URINE NEGATIVE (Neg); KETONES,URINE NEGATIVE (Neg); LEUKOCYTE ESTERASE ,URINE MODERATE (Neg); NITRITES, URINE POSITIVE (Neg); OCCULT BLOOD,URINE NEGATIVE (Neg); PH,URINE 6.5 (4.8-8.0); PROTEIN,URINE NEGATIVE (Neg); UROBILINOGEN,URINE 0.2 E.U/dL (0.2-1.0)
[2022-08-26 12:19] LABS: UA COLLECTION TYPE CLN CATCH MIDSTREAM
[2022-08-26 12:20] LABS: BACTERIA,URINE 4+ /HPF (Neg); MUCUS STRANDS FEW /LPF (Neg); RBC,URINE 0-2 /HPF (0-2); SQUAMOUS EPITHELIAL CELL,UR FEW /LPF (FEW); WBC,URINE 30-50 /HPF (0-4)
[2022-08-26 12:20] LABS: PRE OP INR 1.1 INR; PRE OP PROTIME 11.4 SECONDS (9.0-12.0)
[2022-08-26 12:21] LABS: ALBUMIN 3.3 G/DL (3.4-5.0); ALBUMIN/GLOBULIN RATIO 0.6 (1.1-1.5); ALKALINE PHOSPHATASE 132 IU/L (46-116); BLOOD UREA NITROGEN 20 MG/DL (7-18); BUN/CREATININE RATIO 20.6 (10.0-20.0); CALCIUM 9.2 MG/DL (8.5-10.1); CHLORIDE 102 MMOL/L (99-107); CREATININE 0.97 MG/DL (0.40-0.90); PRE OP ALT 30 U/L (30-65); PRE OP ANION GAP 10 (8-16); PRE OP AST 38 U/L (10-37); PRE OP BILIRUB, TOTAL 0.4 MG/DL (0.0-1.0); PRE OP GLUCOSE 79 MG/DL (70-104); PRE OP POTASSIUM 3.5 MMOL/L (3.4-5.1); PRE OP SODIUM 138 MMOL/L (135-145); TOTAL PROTEIN 8.9 G/DL (6.4-8.2); eGFR 58 ML/MIN
[2022-08-30] MEDS ORDERED: ringers solution, lacted 1,000 ML IV SCH (05:00)
[2022-08-30] MEDS ORDERED: clindamycin-Cleocin 900mg/D5W 50 ML IV ONE (05:30)
[2022-08-30] MEDS ORDERED: famotidine 20mg tablet PO ONE (05:30)
[2022-08-30] MEDS ORDERED: gentamicin inj 300 MG in normal saline 100ml IV soln 92.5 ML IV ONE (05:30)
[2022-08-31] MEDS ORDERED: ringers solution, lacted 1,000 ML IV SCH (05:00)
[2022-08-31] MEDS ORDERED: clindamycin-Cleocin 900mg/D5W 50 ML IV ONE (05:30)
[2022-08-31] MEDS ORDERED: gentamicin inj 300 MG in normal saline 100ml IV soln 92.5 ML IV ONE (05:30)
[2022-08-31] MEDS ORDERED: famotidine 20mg tablet PO ONE (05:30)
[2022-09-02] MEDS ORDERED: WOMENS VITAMIN (15:24)
[2022-09-02] MEDS ORDERED: probiotic (15:24)
== END 2022-08-26 23:59 | disposition home or self-care (01) ==
LOC: LAB 10:20 → EDSTATUS 08-31 12:30
PROVIDERS: ATTEND Surgery
DX: Z01.812 Encounter for preprocedural laboratory examination (principal); Z93.3 Colostomy status; K55.039 Acute (reversible) ischemia of large intestine, extent unspecified
CPT/HCPCS: 36415; 80053; 81001; 85025; 85610; 85730; 86885; 86900; 86901; 87077; 87081; 87088; 87186; J1580; J3490; J7120

== ENCOUNTER 2023-01-02 14:39 | Outpatient (CLI) | payer MEDICARE, MEDICAID ==
[~2023-01-02] VITALS: Ht 160 cm; Wt 72.6 kg
[~2023-01-02 14:39] MED LIST changes: -FERR325T29 PO; +POTASSIUM; +WOMENS VITAMIN; +probiotic
[2023-01-02] MEDS ORDERED: FERR325T29 PO (15:10)
[2023-01-02] MEDS ORDERED: HYDR-3964 PO (15:46)
[2023-01-02 16:29] LABS: BILIRUBIN,URINE NEGATIVE (Neg); CLARITY,URINE CLOUDY (Clear); COLOR,URINE STRAW (Yellow); GLUCOSE, URINE NEGATIVE (Neg); KETONES,URINE NEGATIVE (Neg); LEUKOCYTE ESTERASE ,URINE LARGE (Neg); NITRITES, URINE POSITIVE (Neg); OCCULT BLOOD,URINE TRACE-INTACT (Neg); PROTEIN,URINE TRACE mg/dl (Neg); UROBILINOGEN,URINE 0.2 E.U/dL (0.2-1.0)
[2023-01-02 16:36] LABS: UA COLLECTION TYPE CLN CATCH MIDSTREAM
[2023-01-02 16:40] LABS: BACTERIA,URINE 4+ /HPF (Neg); SQUAMOUS EPITHELIAL CELL,UR MANY /LPF (FEW); TRANSITIONAL EPI CELLS,URINE FEW /HPF
[2023-01-02 16:41] LABS: WBC CLUMPS,URINE MODERATE /HPF (NEGATIVE); WBC,URINE TNTC /HPF (0-4)
[2023-01-02 16:48] LABS: BASOPHILS # (AUTO) 0.1 X10'3 (0-0.2); BASOPHILS % (AUTO) 0.7 % (0-1); EOSINOPHILS # (AUTO) 0.2 X10'3 (0-0.9); EOSINOPHILS % (AUTO) 2.5 % (0-6); LYMPHOCYTES # (AUTO) 1.3 X10'3 (1.1-4.8); LYMPHOCYTES % (AUTO) 17.3 % (21-51); MEAN CORPUSCULAR HEMOGLOBIN 30.6 PG (27.0-31.0); MEAN CORPUSCULAR HGB CONC 34.1 g/dL (33.0-36.5); MEAN CORPUSCULAR VOLUME 89.8 FL (78-98); MEAN PLATELET VOLUME 9.1 FL (7.4-10.4); MONOCYTES # (AUTO) 0.6 X10'3 (0-0.9); MONOCYTES % (AUTO) 7.8 % (2-12); NEUTROPHILS # (AUTO) 5.3 X10'3 (1.8-7.7); NEUTROPHILS % (AUTO) 71.7 % (42-75); PRE OP HEMATOCRIT 39.3 % (35.0-45.0); PRE OP HEMOGLOBIN 13.4 g/dL (12.0-16.0); PRE OP PLATELET COUNT 213 X10'3 (140-440); PRE OP WHITE BLOOD COUNT 7.4 10'3 (4.8-10.8); RED BLOOD COUNT 4.37 X10'6 (4.20-5.60); RED CELL DISTRIBUTION WIDTH 14.2 % (11.5-14.5)
[2023-01-02 16:58] LABS: ALBUMIN 3.9 G/DL (3.4-5.0); ALBUMIN/GLOBULIN RATIO 0.6 (1.1-1.5); ALKALINE PHOSPHATASE 173 IU/L (46-116); BLOOD UREA NITROGEN 22 MG/DL (7-18); BUN/CREATININE RATIO 18.6 (10.0-20.0); CALCIUM 9.2 MG/DL (8.5-10.1); CHLORIDE 105 MMOL/L (99-107); CREATININE 1.18 MG/DL (0.40-0.90); PRE OP ALT 23 U/L (30-65); PRE OP ANION GAP 10 (8-16); PRE OP AST 30 U/L (10-37); PRE OP BILIRUB, TOTAL 0.5 MG/DL (0.0-1.0); PRE OP GLUCOSE 89 MG/DL (70-104); PRE OP SODIUM 139 MMOL/L (135-145); TOTAL CARBON DIOXIDE 24.4 MMOL/L (24-32); TOTAL PROTEIN 10.1 G/DL (6.4-8.2); eGFR 47 ML/MIN
[2023-01-02 17:19] LABS: PRE OP POTASSIUM 3.2 MMOL/L (3.4-5.1)
[2023-01-02 17:24] LABS: PRE OP PROTIME 10.7 SECONDS (9.0-12.0)
[2023-01-05] MEDS ORDERED: LACT1CAP65 PO (12:41)
[2023-01-05] MEDS ORDERED: CHOL-35 PO (12:41)
[2023-01-06] MEDS ORDERED: ringers solution, lacted 1,000 ML IV SCH (05:00)
[2023-01-06] MEDS ORDERED: clindamycin-Cleocin 900mg/D5W 50 ML IV ONE (05:30)
[2023-01-06] MEDS ORDERED: gentamicin inj 300 MG in normal saline 100ml IV soln 92.5 ML IV ONE (05:30)
[2023-01-06] MEDS ORDERED: famotidine 20mg tablet PO ONE (05:30)
== END 2023-01-02 23:00 | disposition home or self-care (01) ==
LOC: LAB 14:39 → EDSTATUS 01-06 08:00
PROVIDERS: ATTEND Surgery
DX: Z01.818 Encounter for other preprocedural examination (principal); Z93.3 Colostomy status
CPT/HCPCS: 36415; 71046; 80053; 81001; 85025; 85610; 85730; 86885; 86900; 86901; 87077; 87081; 87088; 87186; 93005; J1580; J3490; J7120

== ENCOUNTER 2023-05-30 09:45 | Outpatient (CLI) | payer MEDICARE, MEDICAID ==
[~2023-05-30 09:45] MED LIST changes: +CHOL-35 PO; -CHOL400T8 PO; +FERR325T29 PO; +HYDR-3964 PO; +LACT1CAP65 PO; -WOMENS VITAMIN; -probiotic
== END 2023-05-30 23:59 | disposition home or self-care (01) ==
LOC: RAD 09:45
PROVIDERS: ATTEND Family Medicine
DX: K43.9 Ventral hernia without obstruction or gangrene (principal); R10.84 Generalized abdominal pain; R16.2 Hepatomegaly with splenomegaly, not elsewhere classified; Z90.49 Acquired absence of other specified parts of digestive tract; Z93.3 Colostomy status
CPT/HCPCS: 74176

== ENCOUNTER 2024-10-20 17:37 | Emergency (ER) | payer BC, MEDICAID ==
[~2024-10-20] VITALS: Ht 167.6 cm; Wt 93.0 kg
--- NOTE | 2024-10-20 18:17 | Physician Documentation ---
History of Present Illness ~ Chief Complaint: Urinary Symptoms Stated Complaint: BACK PAIN Time Seen by MD: 17:53 OK to notify your PCP?: Yes Primary Medical Doctor: ivett Source: patient Mode of Arrival: EMS Exam Limitations: no limitations HPI Ms. Farmer is a 64 y/o female with PMHx significant for HTN, Hep C, Colon CA s/p resection and colostomy and AUD who presents to the ED with c/o ABD pain. She states that she has chronic pain and this feels similar. Pain is located in her upper ABD. She denies nausea/vomiting/diarrhea. She has a colostomy in place but does not have an actual colostomy bag on. She has a makeshift bag with duct take holding it in place. No recent febrile illness. Denies recent ABD trauma. No bright red blood from colostomy. Medication Reconciliation Allergies: Coded Allergies: No Known Allergies (Unverified , 04/01/22) Scheduled Ascorbic Acid (Vitamin C), 1 TAB PO DAILY, (Reported) Cholecalciferol (Vitamin D3) (Vitamin D3), 1 TAB PO DAILY, (Reported) Duloxetine HCl (Duloxetine HCl), 1 CAP PO BID, (Reported) Ferrous Sulfate (Ferrous Sulfate), 1 TAB PO DAILY, (Reported) Lactobacillus Acidophilus (Probiotic), 1 CAP PO DAILY, (Reported) Multivitamin (Multi Vitamin Daily), 1 TAB PO DAILY, (Reported) [Potassium], 2 TAB DAILY, (Reported) Scheduled PRN Hydrocodone Bit/Acetaminophen (Hydrocodon-Acetaminophen 5-325), 1 TAB PO TID PRN for pain, (Reported) Past Medical History Past Medical History: Congestive Heart Failure, Hypertension, Asthma, *GI/HEPATOBILIARY*, Hepatitis C, Anemia, Hypothyroidism Past Surgical History: abdominal surgery, colectomy Other Past Surgical History: colostomy Alcohol Use: Alcoholic Drug Use: none Lives with: S/O Lives In: Home Review of Systems Constitutional: Reports: no symptoms reported Eyes: Reports: no symptoms reported ENT: Reports: no symptoms reported Respiratory: Reports: no symptoms reported Cardiovascular: Reports: no symptoms reported Gastrointestinal: Reports: abdominal pain Genitourinary: Reports: burning Neurological: Reports: no symptoms reported Musculoskeletal: Reports: no symptoms reported Integumentary: Reports: no symptoms reported Allergic/Immunologic: Reports: no symptoms reported Hematologic/Lymphatic: Reports: no symptoms reported Endocrine: Reports: no symptoms reported Psychiatric: Reports: no symptoms reported Physical Exam Vital Signs: RN Vital Signs have been reviewed: Yes, Temperature: 98.2, Source: Temporal, Heart Rate: 89, Respiratory Rate: 16, BP: 109/61, Pulse Oximetry: 97, Weight: 93.000 General Appearance: alert, WD/WN, no apparent distress EENT: PERRL/EOMI Neck: normal inspection, full range of motion, supple Respiratory: lungs clear, normal breath sounds, no respiratory distress Chest: no accessory muscle use Cardiovascular: normal peripheral pulses Gastrointestinal: normal palpation Gastrointestinal Mild TTP to epigastric region. + BS. No rebounding or guarding. No pulsatile/palpable masses. Ostomy noted to left upper abdomen. Back: normal inspection Rectal: deferred Extremities: normal range of motion Neurologic: oriented x4 Psychiatric: normal mood/affect Progress Results/Orders Results/Orders Orders - YONNY GARCIA MD Ct Abdomen Pelvis (10/20/24 18:23) Ketorolac Trometh 15mg/Ml Vial (Toradol (10/20/24 23:30) Completed Orders - YONNY GARCIA MD BMP (10/20/24 18:23) Cbc/Diff (10/20/24 18:23) Ethanol (10/20/24 18:23) Hs Troponin I W Calculations (10/20/24 18:23) Lipase (10/20/24 18:23) Liver Panel (10/20/24 18:23) MG (10/20/24 18:23) Ct Abdomen Pelvis (10/20/24 18:23) LA (10/20/24 18:25) Normal Saline 1000ml (0.9% Sodium Chlori (10/20/24 19:30) Potassium Cl Sr Tablet (K-Dur Tablet) (10/20/24 19:30) Potassium Cl Sr Tablet (K-Dur Tablet) (10/20/24 19:35) Iohexol 300mg/Ml 100ml Inj. (Omnipaque-3 (10/20/24 19:43) Lactic,2hr (10/20/24 20:23) Ua W/Microscopic, Cult If Ind (10/20/24 21:11) Medications Received in ER Medications (Trade) Dose Ordered Sig/Mi Route PRN Reason Start Time Stop Time Status Last Admin Dose Admin Sodium Chloride 1,000 ml @ 1,000 mls/hr ONCE ONCE IV 10/20/24 19:30 10/20/24 20:29 DC 10/20/24 20:03 1,000 MLS/HR (K-DUR tablet) 40 meq ONCE ONCE PO 10/20/24 19:35 10/20/24 19:36 DC 10/20/24 20:03 40 MEQ Vital Signs 10/20/24 10/20/24 10/20/24 10/20/24 18:02 18:08 18:33 18:59 Temp 98.2 98.2 Pulse 94 89 82 Resp 18 16 18 16 B/P (MAP) 101/53 109/61 (77) 140/77 (98) Pulse Ox 97 97 99 10/20/24 10/20/24 10/20/24 10/20/24 19:00 20:49 21:41 22:32 Pulse 88 78 78 Resp 16 16 16 B/P (MAP) 132/68 (89) 163/95 (117) 172/80 (110) Pulse Ox 95 96 95 Laboratory Tests Test 10/20/24 18:47 10/20/24 20:44 10/20/24 21:11 White Blood Count 6.7 Red Blood Count 3.17 L Hemoglobin 9.1 L Hematocrit 27.3 L Mean Corpuscular Volume 86.0 Mean Corpuscular Hemoglobin 28.9 Mean Corpuscular Hemoglobin Concent 33.5 Red Cell Distribution Width 16.1 H Platelet Count 215 Mean Platelet Volume 8.6 Neutrophils (%) (Auto) 63.1 Lymphocytes (%) (Auto) 22.1 Monocytes (%) (Auto) 11.9 Eosinophils (%) (Auto) 2.7 Basophils (%) (Auto) 0.2 Neutrophils # (Auto) 4.3 Lymphocytes # (Auto) 1.5 Monocytes # (Auto) 0.8 Eosinophils # (Auto) 0.2 Basophils # (Auto) 0.0 CBC Comment Sodium Level 145 Potassium Level 2.9 *L Chloride Level 113 H Carbon Dioxide Level 18.5 L Anion Gap 14 Blood Urea Nitrogen 16 Creatinine 1.12 H Estimated GFR/1.73 m2 49 BUN/Creatinine Ratio 14.3 Glucose Level 103 Lactic Acid Level 2.6 H 1.9 Calcium Level 8.1 L Magnesium Level 1.6 Total Bilirubin 0.5 Direct Bilirubin 0.1 Aspartate Amino Transf (AST/SGOT) 24 Alanine Aminotransferase (ALT/SGPT) 21 Alkaline Phosphatase 108 Troponin I High Sensitivity 14 Total Protein 7.9 Albumin 3.1 L Globulin 4.8 H Albumin/Globulin Ratio 0.6 L Lipase 67 Chemistry Comments Ethyl Alcohol Level 157 H Urine Specimen Description Cln catch midstream Urine Color Yellow Urine Clarity Clear Urine pH 6.0 Urine Specific [place] 1.010 Urine Protein Trace Urine Glucose (UA) Negative Urine Ketones Negative Urine Occult Blood Negative Urine Nitrite Negative Urine Bilirubin Negative Urine Urobilinogen 0.2 Urine Leukocyte Esterase Negative Urine RBC 0-2 Urine WBC 0-4 Urine Squamous Epithelial Cells None seen Urine Bacteria Few Urine Culture Indicated Not ind Volume Urine Centrifuged 10 ml Urine Comment Medical Decision Making Additional info obtained from: old records Findings While here in the ED, she remained hemodynamically normal with ABC's intact and in NAD. She is afebrile and nontoxic. She arrived without an actual ostomy bag on but rather a makeshift bag with duct tape holding it on. No bloody output noted. Stoma appears pink and with normal perfusion. I reviewed her labs and she has a normal lipase and LFT's. Normal lactic making bowel ischemia less likely. She does not have peritoneal signs on exam. UA without signs of an actual infection. I reviewed her CT ABD/Pelvis and it shows a hernia, but is without acute pathology. Hernia does not appear to be incarcerated/strangulated on my exam. EtOH returned elevated at 157. She was allowed to metabolize here and is tolerating PO intake well. Ambulating without gait abnormalities. Applied a colostomy bag to her ostomy. She is safe for d/c home. Given follow- up and return instructions. She voiced understanding and agreement with d/c instructions. Urinary Diff Dx:Considerations: Include: Appendicitis, Bowel obstruction, Cholelithiasis, Hepatitis, Pancreatitis, Pyelonephritis, Urinary retention Departure Disposition: HOME / SELF CARE / HOMELESS Impression: Primary Impression: Colostomy in place Additional Impressions: Alcoholic intoxication Abdominal pain Condition: Stable Referrals: NO PRIMARY CARE PROVIDER (PCP) Education Educated: Patient Educated regarding: diagnosis, treatment Signature Scribe Signature: N/A Attestation: N/A YONNY GARCIA MD Oct 20, 2024 18:17
[2024-10-20 18:59] VITALS: TEMP 98.2
[2024-10-20 19:09] LABS: MEAN PLATELET VOLUME 8.6 FL (7.4-10.4); RED CELL DISTRIBUTION WIDTH 16.1 % (11.5-14.5)
[2024-10-20 19:17] LABS: CREATININE 1.12 MG/DL (0.40-0.90); ETHANOL 157 MG/DL (<10); TOTAL CARBON DIOXIDE 18.5 MMOL/L (24-32); eCRCL 48 ML/MIN; eGFR 49 ML/MIN
[2024-10-20] MEDS ORDERED: potassium Cl 20 mEq SR tablet PO SCH (19:30)
[2024-10-20] MEDS ORDERED: iohexol 300mg/ml 100ml inj. ONE (19:43)
[2024-10-20] MEDS: normal saline 1000ml 1,000 ML IV ONE (20:03)
[2024-10-20] MEDS: potassium Cl 20 mEq SR tablet PO ONE (20:03)
--- NOTE | 2024-10-20 20:59 | RADIOLOGY REPORT ---
EXAM: CT CT ABDOMEN PELVIS W/ IV CONTRAST HISTORY: abdominal pain TECHNIQUE: Volumetric multidetector CT images of the abdomen and pelvis were obtained after the administration of intravenous contrast. All CT scans at this facility use dose modulation, iterative reconstruction, and/or weight based dosing when appropriate to reduce radiation dose to as low as reasonably achievable. COMPARISON: CT CT ABDOMEN PELVIS on DOS: 05/30/23 FINDINGS: [LOWER CHEST]: The partially visualized lung bases are clear without a pleural effusion. Multiple superficial varicosities along the anterior upper chest. [LIVER]: Normal hepatic size without suspicious focal lesion. [GALLBLADDER AND BILIARY TREE]: Surgically absent. [SPLEEN]: Unremarkable. [PANCREAS]: Unremarkable. [ADRENAL GLANDS]: Unremarkable [KIDNEYS]: No hydronephrosis. No nephroureterolithiasis. Benign-appearing cysts of the superior medial kidney. [BLADDER]: Unremarkable for the degree distention. [REPRODUCTIVE ORGANS]: Unremarkable. [BOWEL/MESENTERY]: Stomach is normal. No CT evidence of bowel obstruction. [ASCITES]: Absent [LYMPHADENOPATHY]: No pathologically enlarged lymph nodes by CT size criteria [VASCULATURE]: No aneurysmal dilatation. [ABDOMINAL WALL]: Significant broad-base ventral abdominal fat and bowel containing hernia related to diastasis rectus. 17.3 cm neck and subsequent 34.5 cm sac. Left lower quadrant ostomy. Postsurgical changes with resection of the level of the sigmoid colon. [MUSCULOSKELETAL]: No acute fracture or aggressive focal osseous lesion. Multifocal degenerative change of the visualized spine. IMPRESSION: 1. No CT evidence of an acute abdominal/pelvic process. 2. Significant broad-base ventral abdominal fat and bowel containing hernia related to diastasis rectus.
[2024-10-20 21:24] LABS: LEUKOCYTE ESTERASE ,URINE NEGATIVE (Neg); NITRITES, URINE NEGATIVE (Neg); OCCULT BLOOD,URINE NEGATIVE (Neg)
[2024-10-20 21:29] LABS: UA COLLECTION TYPE CLN CATCH MIDSTREAM
[2024-10-20 21:30] LABS: SQUAMOUS EPITHELIAL CELL,UR NONE SEEN /LPF (FEW)
[2024-10-20] MEDS: ketorolac trometh 15mg/ml vial 15 MG/ML ML IV ONE (23:45)
[2024-10-21 00:05] VITALS: BP 164/88; PULSE 88; RESP 16; O2SAT 98
== END 2024-10-21 00:09 | disposition home or self-care (01) ==
LOC: ER 17:37
DX: Z43.3 Encounter for attention to colostomy (principal); F10.129 Alcohol abuse with intoxication, unspecified; R10.9 Unspecified abdominal pain; E03.9 Hypothyroidism, unspecified; I11.0 Hypertensive heart disease with heart failure; I50.9 Heart failure, unspecified; J45.909 Unspecified asthma, uncomplicated; Z90.49 Acquired absence of other specified parts of digestive tract; Y90.9 Presence of alcohol in blood, level not specified
CPT/HCPCS: 36415; 74177; 80048; 80076; 80320; 81001; 83605; 83690; 83735; 84484; 85025; 96361; 96374; 99285; J1885; J7030; Q9967